=== PATIENT | male | born 1945 | race Caucasian/White ===

== ENCOUNTER 2016-07-07 11:47 | Inpatient (IN) | payer OTHER ==
--- NOTE | ~2016-07-07 | HP ---
History And Physical [address] [facility] [place]. [address] NAME: MIKE NDIAYE : 47 STATUS : ADM IN [facility]#: [id number] AGE: 71 ADM/REG DATE : 07/07/16 MR#: [id number] REPORT SERV DATE: 07/07/16 DICTATED BY: IMANI LING DATE: 07/07/16 REPORT STATUS : Draft TRANSCRIBED BY: MODL DATE: 07/07/16 DATE OF ADMISSION: 07/07/2016 PRIMARY CARE PHYSICIAN: Dr. Love in the [place]. MATCHER LEATHER PARTS: Dr. Smith. HISTORY OF PRESENT ILLNESS: This is a 71-year-old male, who comes in for abdominal pain. The patient has a history of CKD, COPD, asthma, diabetes, and hypertension. For several weeks now, the patient has not been eating well because nothing tastes good. He said he lost his taste sensation. He then underwent a right knee surgery on 06/14/2016 and during that admission in [place] he said that they gave him something through the IV, which causes him to have a rash and they gave him some things that help it out, but he was not told of what that allergic medication is. There was also one point where his sugar was too high and then it was too low. Eventually, the patient got discharged on four new medications including Coumadin, two pain pills, and a stool softener. The patient pretty much was not eating well and about a week ago the patient started having some abdominal pain, epigastric area associated with nausea and later on vomiting x6 of previously ingested food, and no blood. He noted that the pain was more after he eats and that contributed more to him not eating. The patient went to see Dr. Moore on Tuesday two days prior to present admission. Blood was taken from him and then he got cold and he was told that there is something wrong with his pancreas. He was advised to go to the hospital, he refuses. Followed up with the [place] doctor. Discussed with Dr. Jimenez and finally we got admit the patient. Of note, the patient also had home health visiting him and he was found to have an elevated INR. The patient's admitted that he had some undocumented fever, chills, and sweats, which was transient. The patient said that he had an episode of diarrhea, but it was for now. There is no cough or shortness of breath. The patient feels weak, but there is no near syncopal or syncopal episode. There are no urinary changes. There is no radiation of the pain. No chest pain. No shortness of breath. No new rashes. REVIEW OF SYSTEMS: The rest of the 14-point review of system is negative except as above. PAST MEDICAL HISTORY: Anxiety, asthma and COPD, hypertension, hyperlipidemia, chronic renal failure, diabetes type 2 non-insulin dependent, hypertension, he had a left heel surgery and a recent right knee surgery. ALLERGIES: HE IS ALLERGIC TO ASPIRIN, WHICH CAUSES A RASH. MEDICATIONS: , Byetta, Cialis, , glipizide, lisinopril, Actos, simvastatin, Symbicort, triamcinolone. FAMILY HISTORY: Diabetes, hypercholesterolemia, hypertension, lung cancer in mother. SOCIAL HISTORY: The patient is an ex-smoker, quit about a year ago after 55 years of smoking History And Physical [address] [address] NAME: MIKE NDIAYE : [birth year] STATUS : ADM IN [facility]#: [id number] AGE: 71 ADM/REG DATE : 07/07/16 MR#: [id number] REPORT SERV DATE: 07/07/16 DICTATED BY: IMANI LING DATE: 07/07/16 REPORT STATUS : Draft TRANSCRIBED BY: ROD DATE: 07/07/16 one and half packs a day. Denies alcohol or recreational drug use. PHYSICAL EXAMINATION: GENERAL: The patient is tired looking, alert and oriented x3, not in cardiopulmonary distress. VITAL SIGNS: His vital signs include temperature of 98.6, heart rate of 80, respiration of 16, blood pressure of 100/76, saturating 96% on room air. NECK: He has supple neck. No JVD or carotid bruits. No lymphadenopathy. [place] conjunctivae. Anicteric sclerae. No pharyngeal erythema. LUNGS: Clear lungs. No rales, no wheezes. CARDIOVASCULAR: Regular rate and rhythm. No murmurs appreciated. ABDOMEN: Positive bowel sounds. Soft. Very minimal tenderness in the epigastric area. No rebound, guarding, or masses. Fair pulses. No edema. Right knee shows sterile strip with no evidence of infection. NEURO: Nonlocalizing. ASSESSMENT: 1. Dehydration. 2. Abdominal pain, rule out pancreatitis. 3. Chronic obstructive pulmonary disease and asthma. 4. Diabetes. 5. Hypertension. 6. Chronic kidney disease. PLAN: The patient mentioned that he had 17 pounds weight loss since he stopped eating well and this is worrisome. We will admit the patient to the hospital. Check the blood work and CAT scan the abdomen and pelvis. We will hydrate and start only him on the liquid diet. Continue oxygen and bronchodilators. Check hemoglobin A1c. Place on strict insulin protocol. Hold the BP medications for now as he is looking like he is dehydrated and restart blood pressure medications if it goes up. This has been explained to the patient in front of the . They agreed and understood the plan. LAKEISHA/ROD Imani Ling M.D. / [id number] CC: Tom Christian M.D.
--- NOTE | ~2016-07-07 | CN ---
Consultation Report [facility] [address] [place]. [address] NAME: MIKE GOEL : 47 STATUS : ADM IN PAT#: [id number] AGE: 71 ADM/REG DATE : 07/07/16 MR#: [id number] REPORT SERV DATE: 07/08/16 DICTATED BY: FLORI CHAVARRIA DATE: 07/08/16 REPORT STATUS : Draft TRANSCRIBED BY: MODL DATE: 07/08/16 GI CONSULTATION DATE OF CONSULTATION: 07/08/2016 REASON FOR CONSULTATION: Evaluation and management of abdominal pain, pancreatitis on CT scan, and elevated lipase. HISTORY OF PRESENT ILLNESS: Mr. Goel is a 71-year-old male patient, who has been seen by Dr. Sun in the past for colonoscopies, who presented to [facility] after being seen by his primary care physician Dr. Eugene Jimenez secondary to abdominal pain, nausea, and decreased appetite. The patient states that he had right total knee arthroplasty with Dr. Wei on 06/14/2016 at [facility]. He was there for roughly three days per the 's report, did not have a good appetite then, but was able to take in small amounts of food, states after getting home, he began to have abdominal discomfort, states that it felt like there was a balloon in his belly just bloat up. He was bloated. He was distended. He had nausea as well as vomiting. His abdominal pain persisted. He went to see Dr. Moore on Tuesday, indicated he had elevation of his amylase, and was advised to go to the hospital, but he did not come, he followed up with Dr. Jimenez and was sent over for admission yesterday. CT scan on admission without contrast showed acute pancreatitis with haziness and stranding in the peripancreatic fat planes. No pseudocyst. He had findings of cholelithiasis without CT evidence for acute cholecystitis. No biliary ductal dilatation was seen. He had a lipase of 498 and amylase of 53, hemoglobin A1c is at 8.8, total bilirubin of 0.7, alkaline phosphatase of 206. ALT of 179, AST of 77. He has been on IV fluids at 125, he states that today he has no abdominal pain. He was able to take in his clear liquid diet without any pain or nausea. Overall, he states that he is feeling better. He denies ever having any episodes of pancreatitis in the past. He does not drink alcohol. He states that he has lost roughly 20 pounds since his surgery secondary to inability to eat. He does state that his tastes are altered since his surgery, things that he used to like he does not like any more, things that he did not like, he will drink and eat now. PAST MEDICAL HISTORY: Positive for anxiety, asthma, COPD, hypertension, hyperlipidemia, chronic renal failure, hyperplastic colon polyps, internal hemorrhoid, type 2 diabetes, hypertension, left heel surgery, and recent right total knee arthroplasty. ALLERGIES: ASPIRIN. HOME MEDICATIONS: Precose, Proventil, Symbicort, Byetta, Glucotrol, hydrochlorothiazide, Proventil, Claritin, Radha-Colace, Viagra, Spiriva, Desyrel, and Coumadin. REVIEW OF SYSTEMS: A 10-point review of systems has been obtained. Pertinent positives are addressed in the history of present illness. Consultation Report [address] [address] NAME: MIKE GOEL : 47 STATUS : ADM IN [facility]#: [id number] AGE: 71 ADM/REG DATE : 07/07/16 MR#: [id number] REPORT SERV DATE: 07/08/16 DICTATED BY: FLORI CHAVARRIA DATE: 07/08/16 REPORT STATUS : Draft TRANSCRIBED BY: ROD DATE: 07/08/16 FAMILY HISTORY: Noncontributory from a GI standpoint. SOCIAL HISTORY: Past tobacco cessation, roughly one year ago. Denies any alcohol or illicit drugs. He is , present at the bedside. PHYSICAL EXAMINATION: VITAL SIGNS: Temperature 98.3, pulse 87, respirations 14, and blood pressure 117/67. NEUROLOGIC: Reveals an alert male, resting in bed. No obvious focal deficits. GENERAL: Cooperative, in no apparent distress. He is awake. He is alert. He is oriented x3. HEAD, EARS, EYES, NOSE, AND THROAT: Anicteric. Pupils are equal, round, and reactive to light and accommodation. Normocephalic and atraumatic. NECK: No JVD. No palpable nodes. LUNGS: Diminished in the bases. Clear in the upper lobes. Normal respiratory effort exhibited. Equal expansion. CARDIOVASCULAR: Regular rate and rhythm. ABDOMEN: Soft, nondistended, and nontender. He has active bowel sounds. No organomegaly appreciated. No rebound or guarding elicited on exam. EXTREMITIES: No edema. Normal distal pulses. SKIN: Warm, dry, and intact. PERTINENT LABORATORY DATA: Sodium 133, potassium 3.8, BUN is 50, and creatinine is 1.82. White count 11.7, hemoglobin 11.8, and hematocrit 36. INR of 3.9. ASSESSMENT: 1. Acute pancreatitis with nausea and vomiting. 2. Abdominal pain, elevated LFTs, and cholelithiasis. 3. Weight loss of 17 pounds since 06/14/2016. 4. Diabetes type 2, poor control. Hemoglobin A1c of 8.8. 5. Recent right total knee arthroplasty on 06/14/2016. PLAN: 1. Recheck LFTs and lipase now. 2. Ultrasound of the abdomen. 3. Questionable MRCP. 4. PPI. 5. Question if any of these to be med related. He is on hydrochlorothiazide which can cause pancreatitis. We will follow. OSMIN/ROD [place] Consultation Report [address] [place]. [address] NAME: MIKE GOEL : 47 STATUS : ADM IN PAT#: [id number] AGE: 71 ADM/REG DATE : 07/07/16 MR#: [id number] REPORT SERV DATE: 07/08/16 DICTATED BY: FLORI CHAVARRIA DATE: 07/08/16 REPORT STATUS : Draft TRANSCRIBED BY: ROD DATE: 07/08/16 LISSY Celis / [id number] CC: Tom Christian M.D.
--- NOTE | ~2016-07-07 | DS ---
Discharge Summary [address] [place]. [address] NAME: MIKE NDIAYE : 47 STATUS : DIS IN PAT#: [id number] AGE: 71 ADM/REG DATE : 07/07/16 MR#: [id number] REPORT SERV DATE: 07/12/16 DICTATED BY: IMANI LING DATE: 07/11/16 REPORT STATUS : Draft TRANSCRIBED BY: MODL DATE: 07/11/16 ADMISSION DATE: 07/07/2016 DISCHARGE DATE: 07/11/2016 CONSULTING PHYSICIAN: Dr. Gusman for Surgery. FINAL DIAGNOSES: 1. Acute pancreatitis, likely biliary cause. 2. Cholelithiasis. 3. Status post dehydration. 4. Chronic obstructive pulmonary disease and asthma. 5. Diabetes. 6. Hypertension. 7. Status post acute kidney injury on chronic kidney disease. 8. Status post hyponatremia. 9. Low TSH. 10.Recent knee surgery. DIAGNOSTIC EXAMS: Chest x-ray showing no acute cardiopulmonary process. CAT scan of abdomen and pelvis showing acute pancreatitis, no organized collection, cholelithiasis without evidence for acute cholecystitis. No biliary ductal dilatation. Colonic diverticulosis. Prominent prostate. Infrarenal abdominal aortic aneurysm 2.4 x 2.7 cm. Mild atherosclerotic calcification of the coronary arteries with trace anterior pericardial fluid. Gallbladder ultrasound showing 1.4 cm gallstone in the neck of the gallbladder with mild gallbladder wall thickening. Common bile duct is mildly dilated measuring 8 mm. There is no intrahepatic bile duct dilatation. Inflammation surrounding the pancreas consistent with acute pancreatitis. HOSPITAL COURSE: Please refer to the H and P done by myself dated on 07/07/2016. Briefly, this is a 71-year-old male, who comes in for abdominal pain. The patient has a history of CKD, COPD, asthma, diabetes, hypertension; comes in for poor appetite, decreasing weight, abdominal pain, nausea, and vomiting. The patient was seen by Dr. Jimenez and was referred for direct admit. Further workup revealed that the patient has acute pancreatitis likely biliary force. We got GI to consult, and when we got further imaging, we got Surgery to consult. GI signed off and the patient actually got better with supportive management. He is able to tolerate a diabetic low-fat diet without any increase in abdominal pain, nausea, and vomiting. Surgery dropped by. They wanted to do a cholecystectomy, however, the patient has an elevated INR. We held the Coumadin for several days and it is still elevated. Surgery said this is not emergent and they would want to follow up the patient on an outpatient basis. The patient expresses wishes to go home. So, we will be discharging him with the above diagnosis. He will follow up with his PCPs, Dr. Love and Dr. Eugene Jimenez, in one to two weeks and follow up with Dr. Gusman in one to two weeks for a laparoscopic cholecystectomy. The patient will also need to follow up with his orthopedic surgeon for his recent right knee replacement. This has been explained to the patient. His home medications would be hydrochlorothiazide 25 mg a day, loratadine 10 mg a day, Discharge Summary [address] [address] NAME: MIKE NDIAYE : 47 STATUS : DIS IN PAT#: [id number] AGE: 71 ADM/REG DATE : 07/07/16 MR#: [id number] REPORT SERV DATE: 07/12/16 DICTATED BY: IMANI LING. DATE: 07/11/16 REPORT STATUS : Draft TRANSCRIBED BY: ROD DATE: 07/11/16 Spiriva one capsule inhaled a day, Proventil two puffs twice a day, Symbicort 160/4.5 twice a day, Byetta 10 mcg twice a day, Celebrex 200 a day. He will be off his Benicar and lisinopril. His blood pressure has been fine without ELVI inhibitor and ARBS and he do not want to start with recent ALEJANDRO. Pravachol 40 mg at bedtime, Glucophage 850 mg three times a day, DiaBeta 5 mg. He will be off the acarbose and he said he was taken off the Actos recently. He has [place] 7.5/325 one tablet every six hours p.r.n., Desyrel 50 mg at bedtime p.r.n. sleep. The patient agreed and understood the plan and the is aware as well. LAKEISHA/ROD Imani Ling M.D. / [id number] CC: Tom Christian M.D. Brant Holt, M.D.
--- NOTE | ~2016-07-07 | CN ---
Consultation Report [facility] [address] [place]. [address] NAME: MIKE NDIAYE : 47 STATUS : ADM IN [facility]#: [id number] AGE: 71 ADM/REG DATE : 07/07/16 MR#: [id number] REPORT SERV DATE: 07/09/16 DICTATED BY: SCOTT GUSMAN DATE: 07/09/16 REPORT STATUS : Draft TRANSCRIBED BY: MODL DATE: 07/09/16 GENERAL SURGERY CONSULT H AND P DATE OF CONSULTATION: 07/09/2016 CHIEF COMPLAINT: Biliary pancreatitis. HISTORY OF PRESENT ILLNESS: This is a 71-year-old male who had a right total knee arthroplasty on 06/14/2016, subsequently afterwards started having the abdominal pain, abdominal distention, nausea, vomiting, and abdominal pain. He sought out his primary care physician, workup that entailed what sounds like lab work as well as the CT scan. He had lab work, which was concerning, and he was advised to go to the hospital and then he had a CT scan upon admission, which showed acute pancreatitis, no pseudocyst, as well as he had cholelithiasis with possible signs of acute cholecystitis. He has convalesced well here in the hospital. He is now on a full liquid diet. His labs are trending back towards normal. The patient stresses he has no abdominal pain at this time. No nausea or vomiting. He feels subjectively better. He has never had this kind of pain before. REVIEW OF SYSTEMS: A 12 system review negative except as mentioned in the HPI. ALLERGIES: ASPIRIN. PAST MEDICAL HISTORY: Positive for anxiety, asthma, COPD, hypertension, hyperlipidemia, chronic renal failure, hyperplastic colon polyps, internal hemorrhoids, type 2 diabetes, and hypertension. PAST SURGICAL HISTORY: Includes a left heel surgery and right total knee arthroplasty. FAMILY HISTORY: Noncontributory. No ulcerative colitis. No Crohn disease. No GI cancers. SOCIAL HISTORY: No tobacco, alcohol, or drugs. Currently and lives with his . HOME MEDICATIONS: Precose, Proventil, Symbicort, Byetta, Glucotrol, hydrochlorothiazide, Claritin, Radha-Colace, Viagra, Spiriva, Desyrel, and Coumadin. PHYSICAL EXAMINATION: VITAL SIGNS: Temperature 98.3, blood pressure 115/65, pulse 93, respiratory rate 18, O2 sats 96 on room air. GENERAL: A well-developed, well-nourished, in no acute distress, white male, appears stated age. HEENT: Normocephalic and atraumatic. PERRLA. EOMI. Mucous membranes moist. NECK: No lymphadenopathy. Trachea midline. CARDIOVASCULAR: Regular rate and rhythm. Consultation Report [address] [place]. [address] NAME: MIKE NDIAYE : 47 STATUS : ADM IN PAT#: [id number] AGE: 71 ADM/REG DATE : 07/07/16 MR#: [id number] REPORT SERV DATE: 07/09/16 DICTATED BY: SCOTT GUSMAN DATE: 07/09/16 REPORT STATUS : Draft TRANSCRIBED BY: ROD DATE: 07/09/16 LUNGS: Clear to auscultation bilaterally. ABDOMEN: Soft, nondistended, nontender. Bowel sounds present. EXTREMITIES: No clubbing, cyanosis, or edema. MUSCULOSKELETAL: Moves all extremities well. NEUROLOGIC: Cranial nerves 2 through 12 are intact. A and O x3. LABORATORY DATA: White blood cell count 9.1, hematocrit 29.6, platelets of 301. Sodium 139, potassium 2.6, chloride 104, bicarb 23, BUN 29, creatinine 1.38, glucose 180, calcium 8.0, albumin 2.1, total bilirubin 0.5, alkaline phosphatase 139, which is a decrease, ALT 120, AST 59, lipase 62, which is a normal value. Ultrasound shows cholelithiasis, sludge consistent with thickened gallbladder wall and common bile duct was [address] scan showed cholelithiasis and peripancreatic fat stranding and edema consistent with pancreatitis. ASSESSMENT/PLAN: This is a 71-year-old male with biliary pancreatitis, now resolving. The patient's INR was 3.4. Recommend holding the Coumadin once the INR trends naturally down to approximately 1.5. We will be available to do laparoscopic cholecystectomy. We will do an intraoperative cholangiogram. DICTATED BY: MD JOEY Pineda/ROD Scott Gusman M.D. / [id number] CC: Tom Christian M.D.
[~2016-07-07 11:47] MED LIST: ACARBOSE100 MG OR; ACTOS30 PO; BENICAR20 PO; BYETTA10 SC; CELEBREX2 PO; DIABETA5 PO; GLUCPH8 PO; NORCO1 TA2 PO; PRAVACHOL40 MG PO
[2016-07-07] MEDS ORDERED: CLARIT10 PO (12:57)
[2016-07-07] MEDS ORDERED: LISINOPRIL40 MG PO (12:57)
[2016-07-07] MEDS ORDERED: GLUCOTRO10 PO (12:57)
[2016-07-07] MEDS ORDERED: PERI-COLACE1 TAB PO (12:58)
[2016-07-07] MEDS ORDERED: HYDROCHLOROT25 MG PO (12:58)
[2016-07-07] MEDS ORDERED: PRECOSE100 MG PO (12:58)
[2016-07-07] MEDS ORDERED: PROVHFA PO (12:58)
[2016-07-07] MEDS ORDERED: SYMBICORT 160/41 INH INH ×2 (12:59→14:09)
[2016-07-07] MEDS ORDERED: TRAZ50 PO (12:59)
[2016-07-07] MEDS ORDERED: SPIRIVA INH (12:59)
[2016-07-07] MEDS ORDERED: VITAMIN D2000 UNIT PO (12:59)
[2016-07-07] MEDS ORDERED: VIAGRA100 MG PO (14:08)
[2016-07-07] MEDS ORDERED: TRIAMCINOLONE C80 GM TOP (14:09)
[2016-07-07] MEDS ORDERED: BYETTA10 SC (14:10)
[2016-07-07] MEDS ORDERED: CIALIS20 MG PO (14:12)
[2016-07-07] MEDS ORDERED: ACTOS30 PO (14:13)
[2016-07-07] MEDS ORDERED: ZOCOR10 PO (14:17)
[2016-07-07 17:04] LABS: BASOPHILS 0.1 %; BASOPHILS ABSOLUTE 0.01 10/3/uL (0.0-0.16); EOSINOPHILS 0.7 %; EOSINOPHILS ABSOLUTE 0.08 10/3/uL (0.0-0.53); HEMATOCRIT 36.1 % (40.0-51.0); HEMOGLOBIN 11.8 g/dL (13.6-17.8); IMMATURE GRANULOCYTES ABSOLUTE 0.12 10/3/uL (0.0-0.11); LYMPHOCYTES 13.5 %; LYMPHOCYTES ABSOLUTE 1.58 10/3/uL (0.67-4.30); MEAN CORPUS HGB CONC 32.7 g/dL (32.0-36.0); MEAN CORPUSCULAR HEMOGLOB 28.9 pg (26.0-34.0); MEAN CORPUSCULAR VOLUME 88.5 fL (80-100); MEAN PLATELET VOLUME 10.3 fL (9.2-13.0); MONOCYTES 8.4 %; MONOCYTES ABSOLUTE 0.98 10/3/uL (0.21-1.20); NEUTROPHILS 76.3 %; NEUTROPHILS ABSOLUTE 8.93 10/3/uL (2.02-8.40); PLATELET COUNT 313 10/3/uL (150-400); RBC DISTRIBUTION WIDTH 13.4 % (12.0-16.0); RED CELL COUNT 4.08 10/6/uL (4.7-6.1); WHITE BLOOD CELLS 11.7 10/3/uL (4.5-10.5)
[2016-07-07 17:05] LABS: MANUAL DIFF NO %
[2016-07-07 17:15] LABS: INTERNATIONAL NORMAL RATI 3.9 UNITS (-); PARTIAL THROMBO TIME 55.9 SEC (22.5-37.2); PROTIME (NOT ORD) 38.1 SEC (12.0-14.5)
[2016-07-07 17:37] LABS: A/G RATIO 0.6 (0.7-1.9); ALBUMIN 2.7 G/DL (3.5-5.0); ALKALINE PHOSPHATASE 206 U/L (45-117); BUN (BLOOD UREA NITROGEN) 50 MG/DL (6-23); CALCIUM, SERUM 8.8 MG/DL (8.5-10.4); CHLORIDE, SERUM 94 MMOL/L (96-112); CO2 (CARBON DIOXIDE) 28 MMOL/L (24-34); CREATININE 1.82 MG/DL (0.70-1.30); GFR AFRICAN AMERICAN 43 ML/MIN (>=60); GFR NON AFRICAN AMERICAN 37 ML/MIN (>=60); GLOBULIN 4.5 G/DL (2.5-4.1); GLUCOSE, SERUM 341 MG/DL (60-99); PHOSPHORUS, SERUM 2.9 MG/DL (2.5-4.5); POTASSIUM, SERUM 3.8 MMOL/L (3.5-5.3); SGOT(AST) 77 U/L (5-40); SGPT(ALT) 179 U/L (5-65); SODIUM, SERUM 133 MMOL/L (135-148); TOTAL BILIRUBIN 0.7 MG/DL (0-1.2); TOTAL PROTEIN 7.2 G/DL (6.0-8.5); ULTRASENSITIVE TSH 0.267 MCIU/ML (0.358-3.740)
[2016-07-07 20:56] LABS: CHOL/HDL RATIO(NOT ORDER) 8.5 (0-5); CHOLESTEROL 195 MG/DL (< 200); HDL CHOLESTEROL 23 MG/DL (> 39); LDL CHOLESTEROL 129 MG/DL (< 130); NON-HDL CHOLESTEROL 172 MG/DL (< 160); TRIGLYCERIDE 218 MG/DL (< 150)
[2016-07-08 10:48] LABS: BASOPHILS 0.1 %; BASOPHILS ABSOLUTE 0.01 10/3/uL (0.0-0.16); HEMOGLOBIN 10.3 g/dL (13.6-17.8); IMMATURE GRANULOCYTES 1.9 %; IMMATURE GRANULOCYTES ABSOLUTE 0.19 10/3/uL (0.0-0.11); LYMPHOCYTES 12.5 %; LYMPHOCYTES ABSOLUTE 1.22 10/3/uL (0.67-4.30); MEAN CORPUSCULAR HEMOGLOB 29.2 pg (26.0-34.0); MEAN CORPUSCULAR VOLUME 88.4 fL (80-100); MEAN PLATELET VOLUME 10.5 fL (9.2-13.0); MONOCYTES 8.9 %; MONOCYTES ABSOLUTE 0.87 10/3/uL (0.21-1.20); NEUTROPHILS 75.6 %; NEUTROPHILS ABSOLUTE 7.39 10/3/uL (2.02-8.40); PLATELET COUNT 308 10/3/uL (150-400); RBC DISTRIBUTION WIDTH 13.4 % (12.0-16.0); RED CELL COUNT 3.53 10/6/uL (4.7-6.1); WHITE BLOOD CELLS 9.8 10/3/uL (4.5-10.5)
[2016-07-08 10:51] LABS: HEMATOCRIT 31.2 % (40.0-51.0)
[2016-07-08 10:52] LABS: MANUAL DIFF NO %
[2016-07-08 11:03] LABS: ALBUMIN 2.3 G/DL (3.5-5.0); ALKALINE PHOSPHATASE 155 U/L (45-117); BUN (BLOOD UREA NITROGEN) 43 MG/DL (6-23); CALCIUM, SERUM 7.9 MG/DL (8.5-10.4); CHLORIDE, SERUM 102 MMOL/L (96-112); CO2 (CARBON DIOXIDE) 24 MMOL/L (24-34); DIRECT BILIRUBIN 0.3 MG/DL (0.0-0.4); GFR AFRICAN AMERICAN 54 ML/MIN (>=60); GFR NON AFRICAN AMERICAN 47 ML/MIN (>=60); GLUCOSE, SERUM 176 MG/DL (60-99); INDIRECT BILIRUBIN(NOT ORDER) 0.2 MG/DL (0.1-0.9); POTASSIUM, SERUM 3.6 MMOL/L (3.5-5.3); SGOT(AST) 109 U/L (5-40); SGPT(ALT) 162 U/L (5-65); SODIUM, SERUM 138 MMOL/L (135-148); TOTAL BILIRUBIN 0.5 MG/DL (0-1.2); TOTAL PROTEIN 5.9 G/DL (6.0-8.5)
[2016-07-08 16:57] LABS: INTERNATIONAL NORMAL RATI 3.2 UNITS (-)
[2016-07-08 16:58] LABS: PROTIME (NOT ORD) 32.3 SEC (12.0-14.5)
[2016-07-09 05:40] LABS: BASOPHILS 0.3 %; BASOPHILS ABSOLUTE 0.03 10/3/uL (0.0-0.16); EOSINOPHILS 1.9 %; EOSINOPHILS ABSOLUTE 0.17 10/3/uL (0.0-0.53); HEMATOCRIT 29.6 % (40.0-51.0); HEMOGLOBIN 9.8 g/dL (13.6-17.8); IMMATURE GRANULOCYTES ABSOLUTE 0.27 10/3/uL (0.0-0.11); LYMPHOCYTES ABSOLUTE 1.46 10/3/uL (0.67-4.30); MEAN CORPUS HGB CONC 33.1 g/dL (32.0-36.0); MEAN CORPUSCULAR HEMOGLOB 29.4 pg (26.0-34.0); MEAN CORPUSCULAR VOLUME 88.9 fL (80-100); MEAN PLATELET VOLUME 10.7 fL (9.2-13.0); MONOCYTES 11.4 %; MONOCYTES ABSOLUTE 1.04 10/3/uL (0.21-1.20); NEUTROPHILS 67.4 %; NEUTROPHILS ABSOLUTE 6.13 10/3/uL (2.02-8.40); PLATELET COUNT 301 10/3/uL (150-400); RBC DISTRIBUTION WIDTH 13.5 % (12.0-16.0); RED CELL COUNT 3.33 10/6/uL (4.7-6.1); WHITE BLOOD CELLS 9.1 10/3/uL (4.5-10.5)
[2016-07-09 05:41] LABS: INTERNATIONAL NORMAL RATI 3.4 UNITS (-); PROTIME (NOT ORD) 33.9 SEC (12.0-14.5)
[2016-07-09 05:42] LABS: MANUAL DIFF NO %
[2016-07-09 05:54] LABS: ALBUMIN 2.1 G/DL (3.5-5.0); CHLORIDE, SERUM 104 MMOL/L (96-112); CO2 (CARBON DIOXIDE) 23 MMOL/L (24-34); CREATININE 1.38 MG/DL (0.70-1.30); DIRECT BILIRUBIN 0.2 MG/DL (0.0-0.4); GFR AFRICAN AMERICAN 60 ML/MIN (>=60); GFR NON AFRICAN AMERICAN 51 ML/MIN (>=60); GLUCOSE, SERUM 180 MG/DL (60-99); INDIRECT BILIRUBIN(NOT ORDER) 0.3 MG/DL (0.1-0.9); POTASSIUM, SERUM 3.6 MMOL/L (3.5-5.3); SGOT(AST) 59 U/L (5-40); SGPT(ALT) 128 U/L (5-65); SODIUM, SERUM 139 MMOL/L (135-148); TOTAL BILIRUBIN 0.5 MG/DL (0-1.2); TOTAL PROTEIN 5.5 G/DL (6.0-8.5)
[2016-07-09 06:00] LABS: A/G RATIO 0.6 (0.7-1.9); ALKALINE PHOSPHATASE 139 U/L (45-117); BUN (BLOOD UREA NITROGEN) 29 MG/DL (6-23); GLOBULIN 3.4 G/DL (2.5-4.1)
[2016-07-09 19:14] LABS: PROTIME (NOT ORD) 30.9 SEC (12.0-14.5)
[2016-07-10 07:35] LABS: INTERNATIONAL NORMAL RATI 2.5 UNITS (-); PROTIME (NOT ORD) 26.9 SEC (12.0-14.5)
[2016-07-10 07:40] LABS: BUN (BLOOD UREA NITROGEN) 14 MG/DL (6-23); CALCIUM, SERUM 8.4 MG/DL (8.5-10.4); CHLORIDE, SERUM 109 MMOL/L (96-112); CO2 (CARBON DIOXIDE) 20 MMOL/L (24-34); CREATININE 1.24 MG/DL (0.70-1.30); GFR AFRICAN AMERICAN 68 ML/MIN (>=60); GFR NON AFRICAN AMERICAN 59 ML/MIN (>=60); GLUCOSE, SERUM 111 MG/DL (60-99); POTASSIUM, SERUM 3.4 MMOL/L (3.5-5.3); SODIUM, SERUM 141 MMOL/L (135-148)
[2016-07-10 07:46] LABS: HEMATOCRIT 32.2 % (40.0-51.0); HEMOGLOBIN 10.8 g/dL (13.6-17.8); MEAN CORPUS HGB CONC 33.5 g/dL (32.0-36.0); MEAN CORPUSCULAR HEMOGLOB 29.7 pg (26.0-34.0); MEAN CORPUSCULAR VOLUME 88.5 fL (80-100); MEAN PLATELET VOLUME 10.4 fL (9.2-13.0); PLATELET COUNT 371 10/3/uL (150-400); RBC DISTRIBUTION WIDTH 13.7 % (12.0-16.0); RED CELL COUNT 3.64 10/6/uL (4.7-6.1); WHITE BLOOD CELLS 8.9 10/3/uL (4.5-10.5)
[2016-07-10 07:48] LABS: MANUAL DIFF YES %
[2016-07-10 08:19] LABS: BAND NEUTROPHILS 7 %; EOSINOPHILS 4 %; EOSINOPHILS ABSOLUTE (CALC) 0.36 10/3/uL (0.0-0.53); LYMPHOCYTES 9 %; MONOCYTES 6 %; MONOCYTES ABSOLUTE (CALC) 0.53 10/3/uL (0.21-1.20); NEUTROPHILS ABSOLUTE (CALC) 7.21 10/3/uL (2.02-8.40); PLATELET ESTIMATE ADQ (ADEQUATE); RBC MORPHOLOGY NORM (NORMAL); SEGMENTED NEUTROPHIL (0) 74 %; TOTAL NUCLEATED CELLS 100
[2016-07-10 09:55] LABS: ALBUMIN 2.3 G/DL (3.5-5.0); ALKALINE PHOSPHATASE 137 U/L (45-117); DIRECT BILIRUBIN 0.2 MG/DL (0.0-0.4); INDIRECT BILIRUBIN(NOT ORDER) 0.3 MG/DL (0.1-0.9); SGOT(AST) 46 U/L (5-40); SGPT(ALT) 116 U/L (5-65); TOTAL BILIRUBIN 0.5 MG/DL (0-1.2); TOTAL PROTEIN 6.3 G/DL (6.0-8.5)
[2016-07-11 06:36] LABS: BUN (BLOOD UREA NITROGEN) 12 MG/DL (6-23); CHLORIDE, SERUM 109 MMOL/L (96-112); CO2 (CARBON DIOXIDE) 23 MMOL/L (24-34); CREATININE 1.25 MG/DL (0.70-1.30); GFR AFRICAN AMERICAN 67 ML/MIN (>=60); GFR NON AFRICAN AMERICAN 58 ML/MIN (>=60); GLUCOSE, SERUM 151 MG/DL (60-99); POTASSIUM, SERUM 3.9 MMOL/L (3.5-5.3); SODIUM, SERUM 142 MMOL/L (135-148)
[2016-07-15] MEDS ORDERED: LISINOPRIL40 MG PO ×2 (17:23→17:26)
[2016-07-15] MEDS ORDERED: SYMBICORT 160/41 INH INH (17:34)
[2016-07-15] MEDS ORDERED: C1 (17:37)
[2016-07-15] MEDS ORDERED: PRILO PO (18:19)
== END 2016-07-11 11:02 | disposition home or self-care (01) | DRG 438 ==
LOC: 5SO 11:47
PROVIDERS: Internal Medicine; Nurse Practitioner Family
DX: K85.10 Biliary acute pancreatitis without necrosis or infection (principal); E43 Unspecified severe protein-calorie malnutrition; N17.9 Acute kidney failure, unspecified; J44.9 Chronic obstructive pulmonary disease, unspecified; E11.9 Type 2 diabetes mellitus without complications; E86.0 Dehydration; I12.9 Hypertensive chronic kidney disease with stage 1 through stage 4 chronic kidney disease, or unspecified chronic kidney disease; N18.9 Chronic kidney disease, unspecified; Z96.651 Presence of right artificial knee joint; K80.20 Calculus of gallbladder without cholecystitis without obstruction; R63.4 Abnormal weight loss; Z88.6 Allergy status to analgesic agent; Z79.899 Other long term (current) drug therapy; Z83.3 Family history of diabetes mellitus; Z82.49 Family history of ischemic heart disease and other diseases of the circulatory system; Z80.1 Family history of malignant neoplasm of trachea, bronchus and lung; Z87.891 Personal history of nicotine dependence; Z88.8 Allergy status to other drugs, medicaments and biological substances; Z68.26 Body mass index [BMI] 26.0-26.9, adult; F41.9 Anxiety disorder, unspecified; E78.5 Hyperlipidemia, unspecified
CPT/HCPCS: 36415; 71020; 74176; 76705; 80048; 80053; 80061; 80076; 82150; 82962; 83036; 83690; 83735; 84100; 84132; 84443; 85025; 85027; 85610; 85730; 87045; 87046; 87046-59; 87493; 87493-59; 87899; 87899-59; 89055; 93005; 94640; 97110-GP; 97161-GP; A9270-GY; C9113; G0463